=== PATIENT | female | born 1995 | race African-American/Black ===

== ENCOUNTER 2024-11-17 13:53 | Emergency (ER) | payer OTHER, SELFPAY ==
[2024-11-17] MEDS ORDERED: Ketorolac Tromethamine 30 MG (1 mL) VIAL ONE (14:37)
[2024-11-17] MEDS ORDERED: Cyclobenzaprine 10 MG TAB ONE (14:38)
== END 2024-11-17 14:57 | disposition home or self-care (01) ==
LOC: CSHERS 13:53
DX: S39.012A Strain of muscle, fascia and tendon of lower back, initial encounter (principal); X50.9XXA Other and unspecified overexertion or strenuous movements or postures, initial encounter; Y92.69 Other specified industrial and construction area as the place of occurrence of the external cause
CPT/HCPCS: 96372; 99283; J1885